=== PATIENT | female | born 1950 | race Two or more races ===

== ENCOUNTER 2024-09-11 18:27 | Inpatient (IN) | payer OTHER ==
[~2024-09-11] VITALS: Ht 172.7 cm; Wt 44.5 kg
[2024-09-11] MEDS ORDERED: INSULIN SYRING1 EA29 (18:29)
[2024-09-11] MEDS ORDERED: 0.9 % SODIUM CHLORIDE 1,000 ML IV SCH ×2 (19:00→21:45)
[2024-09-11 19:29] LABS: HEMATOCRIT 35.1 % (36.0-45.00); HEMOGLOBIN 11.4 g/dL (12.0-15.00); MEAN CELL VOLUME 79.8 fL (80.00-100.00); MEAN CORPUSCULAR HGB CONC 32.6 g/dl (32.0-36.0); PLATELET COUNT 201 K/uL (150-450); RED CELL DISTRIBUTION WIDTH 17.7 % (11.5-14.5)
[2024-09-11 19:40] LABS: INR 1.08; PARTIAL THROMBOPLASTIN TIME 26.7 SECONDS (22.0-34.0); PROTHROMBIN TIME 11.7 SECONDS (9.0-11.5)
[2024-09-11 19:44] LABS: ALBUMIN 3.8 gm/dL (3.4-5.0); ALKALINE PHOSPHATASE 207 U/L (50-136); ALT/SGPT 386 U/L (12-78); ANION GAP 9 (10.0-20.0); AST/SGOT 325 U/L (15-37); BILIRUBIN TOTAL 3.74 mg/dL (0.3-1.2); BILIRUBIN,CONJUGATED 2.96 mg/dL (0.0-0.2); BILIRUBIN,UNCONJUGATED 0.78 mg/dL (0.0-0.6); BLOOD UREA NITROGEN 33 mg/dL (7-18); BUN CREA RATIO 17 (7.0-25.0); CALCIUM 9.1 mg/dL (8.5-10.1); CARBON DIOXIDE 28 mEq/L (21-32); CHLORIDE 109 mmol/L (98-107); GFR 25.98; GLOBULINA 4.5 G/DL (2.4-3.5); GLUCOSE FASTING 140 mg/dL (65-100); OSMOLALITY SERUM 293 MOSM/KG (275-295); POTASSIUM 3.73 mEq/L (3.5-5.1); SODIUM 142 mmol/L (136-145); TOTAL PROTEIN 8.3 gm/dL (6.4-8.2)
[2024-09-11 19:47] LABS: AMYLASE > 1302 U/L (25-115); LIPASE > 5000 U/L (13-75)
[2024-09-11] MEDS ORDERED: MORPHINE SULFATE 4 MG/ML CARTRIDGE IV PRN (22:00)
[2024-09-11] MEDS ORDERED: INSULIN LISPRO 1,000 UNIT/10 ML UNITS SUBCUTANEO PRN (22:00)
[2024-09-11] MEDS ORDERED: ACETAMINOPHEN 500 MG GEL..CAP PO PRN (22:00)
[2024-09-11] MEDS ORDERED: DEXTROSE 50 % IN WATER 0.5 G/ML DISP.SYRIN IV PRN (22:00)
[2024-09-11] MEDS ORDERED: KETOROLAC TROMETHAMINE 15 MG VIAL IU ONE (22:00)
[2024-09-11] MEDS ORDERED: ONDANSETRON HCL 4 MG in 0.9 % SODIUM CHLORIDE 50 ML IV PRN (22:00)
[2024-09-11] MEDS ORDERED: KETOROLAC TROMETHAMINE 60 MG VIAL IM ONE (23:43)
[2024-09-12 04:57] VITALS: BP 132/65; O2SAT 94
[2024-09-12] MEDS ORDERED: GLUCAGON 1 MG VIAL ONE (08:00)
[2024-09-12 08:30] LABS: ALBUMIN 3.7 gm/dL (3.4-5.0); BILIRUBIN TOTAL 2.44 mg/dL (0.3-1.2); BILIRUBIN,CONJUGATED 1.71 mg/dL (0.0-0.2); BILIRUBIN,UNCONJUGATED 0.73 mg/dL (0.0-0.6); TOTAL PROTEIN 7.4 gm/dL (6.4-8.2)
[2024-09-12] MEDS ORDERED: LOSARTAN POTASSIUM 100 MG TABLET PO SCH (09:00)
[2024-09-12] MEDS ORDERED: FAMOTIDINE/PF 20 MG in 0.9 % SODIUM CHLORIDE 8 ML IV PUSH SCH (09:00)
[2024-09-12 10:03] VITALS: BP 131/69; O2SAT 95
[2024-09-12] MEDS ORDERED: GLUCAGON 1 MG VIAL IV ONE (11:15)
[2024-09-12] MEDS ORDERED: IOVERSOL 320 MG/ML - 100 ML VIAL IV ONE (11:15)
[2024-09-12] MEDS ORDERED: DICLOFENAC SODIUM 100 MG SUPP.RECT TOP ONE (12:30)
[2024-09-12 17:27] VITALS: BP 140/70; O2SAT 97
[2024-09-12] MEDS ORDERED: INSULIN GLARGINE,HUM.REC.ANLOG 1,000 UNITS/10 ML UNITS SUBCUTANEO SCH (21:00)
[2024-09-12 22:59] VITALS: BP 121/55; O2SAT 97
[2024-09-13 01:27] VITALS: BP 141/89; O2SAT 95
[2024-09-13 07:46] LABS: HEMOGLOBIN 10.4 g/dL (12.0-15.00); MEAN CELL VOLUME 78.2 fL (80.00-100.00); MEAN CORPUSCULAR HEMOGLOBIN 26.3 pg (27.00-32.0); MEAN CORPUSCULAR HGB CONC 33.6 g/dl (32.0-36.0); PLATELET COUNT 163 K/uL (150-450); RED BLOOD COUNT 3.97 M/uL (4.00-6.00)
[2024-09-13 08:33] LABS: ALBUMIN 3.3 gm/dL (3.4-5.0); BILIRUBIN TOTAL 1.38 mg/dL (0.3-1.2); CALCIUM 8.3 mg/dL (8.5-10.1); CREATININE SERUM 1.53 mg/dL (0.55-1.02); GFR 33.36; GLOBULINA 3.4 G/DL (2.4-3.5); POTASSIUM 3.54 mEq/L (3.5-5.1); TOTAL PROTEIN 6.7 gm/dL (6.4-8.2)
[2024-09-13] MEDS ORDERED: AMLODIPINE BESYLATE 5 MG TABLET PO SCH (09:00)
[2024-09-13] MEDS ORDERED: AMLODIPINE BESYLATE 10 MG TABLET PO SCH (09:00)
[2024-09-13] MEDS ORDERED: CHLORHEXIDINE GLUCONATE 240 ML BOTTLE TOP SCH (09:00)
[2024-09-13 09:25] VITALS: BP 125/63; O2SAT 100
[2024-09-13 11:41] LABS: ALBUMIN 3.4 gm/dL (3.4-5.0); BILIRUBIN TOTAL 1.25 mg/dL (0.3-1.2); CALCIUM 8.5 mg/dL (8.5-10.1); CREATININE SERUM 1.59 mg/dL (0.55-1.02); GFR 31.91; GLOBULINA 3.8 G/DL (2.4-3.5); POTASSIUM 3.85 mEq/L (3.5-5.1); TOTAL PROTEIN 7.2 gm/dL (6.4-8.2)
[2024-09-13] MEDS ORDERED: INSULIN LISPRO 1,000 UNIT/10 ML UNITS SUBCUTANEO SCH (16:00)
[2024-09-13] MEDS ORDERED: POLYETHYLENE GLYCOL 3350 17 GM BLIST.PACK PO SCH (17:00)
[2024-09-13 18:43] VITALS: BP 157/76
[2024-09-13] MEDS ORDERED: INSULIN GLARGINE,HUM.REC.ANLOG 1,000 UNITS/10 ML UNITS SUBCUTANEO SCH (21:00)
[2024-09-14 02:30] VITALS: BP 146/78; O2SAT 94
[2024-09-14] MEDS ORDERED: MORPHINE SULFATE 2 MG/ML SYRINGE IV PRN (07:54)
[2024-09-14 08:05] LABS: CREATININE SERUM 1.33 mg/dL (0.55-1.02); GFR 39.22; POTASSIUM 3.55 mEq/L (3.5-5.1)
[2024-09-14 08:36] VITALS: BP 150/75
[2024-09-14] MEDS ORDERED: BUPIVACAINE HCL/MPF 0.5% 30ML VIAL ONE (10:51)
[2024-09-14] MEDS ORDERED: BENZONATATE 200 MG CAPSULE PO SCH (13:00)
[2024-09-14] MEDS ORDERED: PIPERACILLIN/TAZOBACTAM SODIUM 3.375 GM VIAL IV ONE (13:30)
[2024-09-14] MEDS ORDERED: MORPHINE SULFATE 2 MG/ML CARTRIDGE IV ONE (14:15)
[2024-09-14] MEDS ORDERED: ONDANSETRON HCL 2 MG/ML VIAL ONE (15:54)
[2024-09-14 17:43] VITALS: BP 136/103
[2024-09-15 01:10] VITALS: BP 129/70; O2SAT 98
[2024-09-15 09:26] VITALS: BP 130/64; O2SAT 99
== END 2024-09-15 12:35 | disposition home or self-care (01) | DRG 417 ==
LOC: ER 18:27 → MEDJ 22:54
PROVIDERS: General Practice; Internal Medicine; Surgery; ADMIT Student in an Organized Health Care Education/Training Program; ATTEND Student in an Organized Health Care Education/Training Program
PROC: 0FC98ZZ Extirpation of Matter from Common Bile Duct, Via Natural or Artificial Opening Endoscopic (ICD-10-PCS; 2024-09-12)
PROC: 0F7D8DZ Dilation of Pancreatic Duct with Intraluminal Device, Via Natural or Artificial Opening Endoscopic (ICD-10-PCS; 2024-09-12)
PROC: BF14YZZ Fluoroscopy of Gallbladder, Bile Ducts and Pancreatic Ducts using Other Contrast (ICD-10-PCS; 2024-09-12)
PROC: 0FT44ZZ Resection of Gallbladder, Percutaneous Endoscopic Approach (ICD-10-PCS; principal; 2024-09-14 10:15)
DX: K80.10 Calculus of gallbladder with chronic cholecystitis without obstruction (principal); K85.10 Biliary acute pancreatitis without necrosis or infection; N17.9 Acute kidney failure, unspecified; I12.9 Hypertensive chronic kidney disease with stage 1 through stage 4 chronic kidney disease, or unspecified chronic kidney disease; E11.22 Type 2 diabetes mellitus with diabetic chronic kidney disease; N18.9 Chronic kidney disease, unspecified; Z79.4 Long term (current) use of insulin